=== PATIENT | female | born 1955 | race Caucasian/White ===

== ENCOUNTER 2017-02-19 06:43 | Day surgery (SDC) | payer OTHER ==
[~2017-02-19] VITALS: Ht 162.6 cm; Wt 85.3 kg
[~2017-02-19 06:43] MED LIST: ALBU90OI INH; ALLO100 PO; ANTI DEPRESSANT; ASCO500 PO; ASPI325 PO; ATOR10 PO; BENTYL10 MG PO; CHOL10002 PO; CLOT10 SS; CYAN1000 PO; Cleocin HCl300 MG PO; ERGO50000 PO; ERYT.5TO LEFTEYE; FISH1000 PO; HYDACE10B PO; HYDR1TAB94 PO; LORA1 PO; METPRE4DP PO; OMEPRAZOLE MAGN20 MG PO; PRAM.125 PO; PREG75 PO; Percocet 5-3251 EACH PO; RANI150 PO; RXALBOI INH; RXHYD5325 PO; VIBRYD; VIIBRYD20 MG PO; ZORVOLEX35 MG PO
== END 2017-02-19 08:59 | disposition home or self-care (01) ==
LOC: ORSCSDS 06:43
PROVIDERS: Surgery
PROC: 0DJD8ZZ Inspection of Lower Intestinal Tract, Via Natural or Artificial Opening Endoscopic (ICD-10-PCS; principal; 2017-02-19 08:00)
DX: K62.5 Hemorrhage of anus and rectum (principal); K64.1 Second degree hemorrhoids; F32.9 Major depressive disorder, single episode, unspecified; M79.7 Fibromyalgia; Z79.899 Other long term (current) drug therapy; Z79.82 Long term (current) use of aspirin; Z87.891 Personal history of nicotine dependence
CPT/HCPCS: J0330; J1980; J2405; J7120

== ENCOUNTER 2019-02-13 12:41 | Emergency (ER) | payer OTHER ==
[~2019-02-13] VITALS: Ht 167.6 cm; Wt 78.0 kg
[2019-02-13 13:28] LABS: BASOPHILS ABSOLUTE AUTO 0.04 K/mm3 (0.00-0.23); BASOPHILS PERCENT AUTO 1 % (0-2); EOSINOPHILS ABSOLUTE AUTO 0.13 K/mm3 (0.00-0.68); EOSINOPHILS PERCENT AUTO 2 % (0-6); Hematocrit 42.9 % (33.0-51.0); Hemoglobin 13.9 g/dL (11.5-16.0); IMMATURE GRAN ABSOLUTE AUTO 0.03 K/mm3 (0.00-0.10); IMMATURE GRAN PERCENT AUTO 0 % (0-1); LYMPHOCYTES ABSOLUTE AUTO 1.93 K/mm3 (0.84-5.20); LYMPHOCYTES PERCENT AUTO 23 % (21-46); MONOCYTES ABSOLUTE AUTO 0.64 K/mm3 (0.16-1.47); MONOCYTES PERCENT AUTO 8 % (4-13); Mean Corpuscular HGB 29.7 pg (26.0-34.0); Mean Corpuscular HGB Conc 32.4 g/dL (31.5-36.5); Mean Corpuscular Volume 92 fL (80-100); Mean Platelet Volume 11.3 fL (9.1-12.4); NEUTROPHILS ABSOLUTE AUTO 5.74 K/mm3 (1.96-9.15); NEUTROPHILS PERCENT AUTO 67 % (41-73); Platelet Count 282 K/mm3 (150-400); RDW Coefficient Variation 12.9 % (11.7-14.2); RDW Standard Deviation 43.1 fL (35.1-46.3); Red Blood Cell Count 4.68 M/mm3 (3.80-5.20); White Blood Cell Count 8.51 K/mm3 (4.00-11.30)
[2019-02-13 13:49] LABS: Alanine Aminotransfer (ALT/SGP 25 U/L (12-78); Albumin, Blood 3.8 g/dL (3.4-5.0); Albumin/Globulin Ratio 1.2 (0.8-1.8); Alk Phos 105 U/L (50-136); Anion Gap 6 mmol/L (6-16); Aspartate Aminotrans (AST/SGOT 17 U/L (12-37); Bilirubin, Total 0.7 mg/dL (0.1-1.0); Blood Urea Nitrogen 11 mg/dL (8-24); Bun/Creatinine Ratio 13.5 (12.0-20.0); CO2, Blood 28 mmol/L (21-32); Chloride, Blood 108 mmol/L (98-108); Creatinine, Blood 0.81 mg/dL (0.40-1.00); Globulin, Blood 3.3 g/dL (2.2-4.0); Glomerular Filtration Rate >60 (60-); Glucose, Blood 85 mg/dL (70-99); Potassium, Blood 4.1 mmol/L (3.5-5.5); Sodium, Blood 142 mmol/L (136-145); Total Protein, Blood 7.1 g/dL (6.4-8.2); Troponin I <0.015 ng/mL (0.000-0.040)
[2019-02-13] MEDS ORDERED: SUMA25 PO (13:56)
[2019-02-13] MEDS ORDERED: MELO7.5 (13:57)
[2019-02-13] MEDS ORDERED: DICL25ER (13:57)
[2019-02-13] MEDS ORDERED: TIZA4 (13:57)
[2019-02-13] MEDS ORDERED: CITA10S (13:57)
[2019-02-13] MEDS ORDERED: Indomethacin50 MG PO (15:14)
[2019-02-13] MEDS ORDERED: Norco 10-325 T1 EACH PO (15:14)
== END 2019-02-13 15:57 | disposition home or self-care (01) ==
LOC: ER 12:41
PROVIDERS: Emergency Medicine
DX: R09.1 Pleurisy (principal); M79.7 Fibromyalgia; F32.9 Major depressive disorder, single episode, unspecified; G43.909 Migraine, unspecified, not intractable, without status migrainosus; Z88.0 Allergy status to penicillin; Z88.5 Allergy status to narcotic agent; Z79.899 Other long term (current) drug therapy; Z87.891 Personal history of nicotine dependence
CPT/HCPCS: 71046; 71260; 80053; 83690; 84484; 85025; 93005; 93010; 96361; 96374-59; 96375-59; 99284-25; J2270; J2405; J7030; Q9967